=== PATIENT | male | born 1965 | race Caucasian/White ===

== ENCOUNTER 2018-07-17 02:08 | Emergency (ER) | payer MEDICARE ==
[2018-07-17] MEDS ORDERED: ONDANSETRON HCL INJ/PF 4 MG/2 ML SDV IV ONE (03:35)
[2018-07-17] MEDS ORDERED: MORPHINE SULFATE 10 MG/ML INJ IV ONE ×2 (03:36→05:22)
[2018-07-17] MEDS ORDERED: NORMAL SALINE 500 ML IV ONE (03:37)
--- NOTE | 2018-07-17 03:44 | ER Document Report ---
ED GI/ - General Chief Complaint: Abdominal Pain Stated Complaint: ABDOMINAL PAIN Information source: Patient TRAVEL OUTSIDE OF THE [place] IN LAST 30 DAYS: No - HPI Notes: 07/17/18 03:41 53-year-old white male with history of lymphoma, diabetes, cirrhosis secondary to hepatic steatosis presents with left upper quadrant pain that is sharp in nature that started about 3 or 4 hours ago. Is very tender to palpation. He has had some cough but nothing productive and no fever. Denies nausea vomiting diarrhea with a normal bowel movement today. Possibly noted a small amount of hematuria but no dysuria. Denies flank or other radiating pain. No chest pain. - Related Data Allergies/Adverse Reactions: No Known Allergies Allergy (Unverified 07/17/18 05:37) Past Medical History - Social History Smoking Status: Never Smoker Family History: Reviewed & Not Pertinent Review of Systems - Review of Systems -: Yes All other systems reviewed and negative Physical Exam - Vital signs Vitals: Temp Pulse Resp BP Pulse Ox 97.4 F 70 18 143/61 H 97 07/17/18 02:15 07/17/18 02:15 07/17/18 02:15 07/17/18 02:15 07/17/18 02:15 Interpretation: Hypertensive - Notes Notes: GENERAL: VS as per nursing doc. Well-appearing, well-nourished obese male in no acute distress. HEAD: Atraumatic, normocephalic. EYES: Pupils equal round and reactive to light, extraocular movements intact, sclera anicteric, no conjunctival injection or discharge. ENT: Nares patent, oropharynx clear without exudates, moist mucous membranes. NECK: Normal range of motion, supple without lymphadenopathy. LUNGS: Breath sounds clear to auscultation bilaterally and equal. No wheezes rales or rhonchi. HEART: Regular rate and rhythm without murmurs. ABDOMEN: Soft, generalized left upper quadrant tenderness, hypoactive bowel sounds. No guarding, no rebound. No masses appreciated but difficult secondary to habitus. No [place] sign. BACK: No CVA tenderness. EXTREMITIES: Normal range of motion, no calf tenderness, no edema. NEUROLOGICAL: Cranial nerves grossly intact. Normal speech. Normal sensory and motor exams. No gross cerebellar abnormalities. PSYCH: Normal mood, normal affect. SKIN: Warm, dry, normal turgor, no lesions noted. No shingles rash Course - Re-evaluation Re-evalutation: 07/17/18 05:21 Reviewed findings with the patient. States the pain is much better though he still has pain with movement. He understands warning signs to watch for and will get close follow-up with his chronic medical problems. - Vital Signs Vital signs: Temp Pulse Resp BP Pulse Ox 97.4 F 70 15 140/68 H 97 07/17/18 02:15 07/17/18 02:15 07/17/18 06:00 07/17/18 05:01 07/17/18 06:00 - Laboratory Result Diagrams: 07/17/18 04:25 07/17/18 04:25 Laboratory results interpreted by me: 07/17/18 07/17/18 04:25 04:25 RBC 3.98 L Hgb 11.8 L Hct 34.8 L RDW 16.8 H Plt Count 140 L Monocytes % 13.5 H Glucose 189 H Direct Bilirubin 0.6 H Alkaline Phosphatase 203 H - Diagnostic Test Radiology reviewed: Image reviewed, Reports reviewed - CT scan showed hepatic steatosis as well as splenomegaly. No evidence of splenic rupture. Discharge - Discharge Clinical Impression: Abdominal pain Condition: Good Disposition: HOME, SELF-CARE Additional Instructions: Please ensure that you get follow-up with your primary care doctor. Return for worsening or concern, development of fever. Prescriptions: Hydrocodone/Acetaminophen [[place] 5-325 mg Tablet] 1 tab PO Q4HP PRN #14 tablet PRN Reason: For Pain Referrals: LOCALMD,NO [NO LOCAL MD] - Follow up as needed
--- NOTE | 2018-07-17 04:35 | RADIOLOGY REPORT (SQ) ---
EXAM DESCRIPTION: CT ABDOMEN PELVIS WITHOUT IV CONTRAST COMPLETED DATE/TME: 07/17/2018 03:38 CLINICAL HISTORY: LUQ Pain, Lymphoma history COMPARISON: None Available. TECHNIQUE: CT of the abdomen and pelvis without IV contrast. Evaluation of the solid organs and vasculature is suboptimal due to lack of IV contrast. DLP: 1234.61 mGy-cm FINDINGS: Lung Bases: The visualized lung bases are clear. Bones: No destructive bone lesions identified. Abdomen: Liver: The liver has normal size and decreased density. Gallbladder: No calcified gallstones. Spleen, Pancreas, and Adrenal Glands: Splenomegaly. The pancreas and adrenal glands are unremarkable. Kidneys: The kidneys have normal size and contour without evidence of hydronephrosis. No obstructing ureteral calculi. Vasculature: Aortoiliac atherosclerosis. IVC is unremarkable. Stomach: The stomach and duodenum have normal course. Other: No free intraperitoneal air. No free fluid or lymphadenopathy. Minimal inflammatory change in the subcutaneous soft tissues of the anterior abdominal wall may represent injection sites. Pelvis: Bladder: Urinary bladder is unremarkable. Bowel: No dilated loops of large or small bowel. Appendix: Normal appendix. Pelvis: Prostate is not enlarged. IMPRESSION: 1. Splenomegaly. 2. Hepatic steatosis. This exam was performed according to our departmental dose-optimization program, which includes automated exposure control, adjustment of the mA and/or kV according to patient size and/or use of iterative reconstruction technique.
[2018-07-17 04:40] LABS: ABSOLUTE LYMPHOCYTES (AUTO) 1.3 10^3/uL (0.5-4.7); ABSOLUTE MONOCYTES (AUTO) 0.6 10^3/uL (0.1-1.4); ABSOLUTE NEUT (AUTO) 2.2 10^3/uL (1.7-8.2); BASOPHILS % (AUTO) 0.8 % (0-2); EOSINOPHILS % (AUTO) 0.6 % (0-6); HEMATOCRIT 34.8 % (37.9-51.0); HEMOGLOBIN 11.8 g/dL (13.5-17.0); LYMPHOCYTES % (AUTO) 31.9 % (13-45); MEAN CORPUSCULAR HEMOGLOBIN 29.6 pg (27.0-33.4); MEAN CORPUSCULAR HGB CONC 33.8 g/dL (32.0-36.0); MEAN CORPUSCULAR VOLUME 88 fl (80-97); MONOCYTES % (AUTO) 13.5 % (3-13); PLATELET COUNT 140 10^3/uL (150-450); RED BLOOD COUNT 3.98 10^6/uL (4.35-5.55); RED CELL DISTRIBUTION WIDTH 16.8 % (11.5-14.0); SEGMENTED NEUTROPHILS % (AUTO) 53.2 % (42-78); TOTAL CELLS COUNTED % (AUTO) 100 %; WHITE BLOOD COUNT 4.1 10^3/uL (4.0-10.5)
[2018-07-17 04:45] LABS: INTERNATIONAL RATION (INR) 0.98; PROTHROMBIN TIME 13.5 SEC (11.4-15.4)
[2018-07-17 05:02] LABS: ALANINE AMINOTRANSFERASE 42 U/L (21-72); ALBUMIN 3.8 g/dL (3.5-5.0); ALKALINE PHOSPHATASE 203 U/L (38-126); ANION GAP 9 (5-19); ASPARTATE AMINO TRANSFERASE 37 U/L (17-59); BILIRUBIN,DIRECT 0.6 mg/dL (0.0-0.4); BILIRUBIN,TOTAL 0.9 mg/dL (0.2-1.3); BLOOD UREA NITROGEN 13 mg/dL (7-20); CARBON DIOXIDE 25 mmol/L (22-30); CHLORIDE 105 mmol/L (98-107); GLUCOSE 189 mg/dL (75-110); LIPASE 62.6 U/L (23-300); POTASSIUM 3.7 mmol/L (3.6-5.0); SODIUM 138.6 mmol/L (137-145); TOTAL PROTEIN 7.1 g/dL (6.3-8.2)
[2018-07-17 05:41] VITALS: BP 140/68
== END 2018-07-17 06:04 | disposition home or self-care (01) ==
LOC: ER 02:08 → EDBD 02:08 → ER 06:04
DX: R10.12 Left upper quadrant pain (principal); K76.0 Fatty (change of) liver, not elsewhere classified; R16.1 Splenomegaly, not elsewhere classified; E11.9 Type 2 diabetes mellitus without complications; E66.9 Obesity, unspecified; Z85.72 Personal history of non-Hodgkin lymphomas
CPT/HCPCS: 96376; 99284; 96361; 96374; 96375; 36415; 83690; 85025; 85610; 80053; 74176; J2270; J2405